=== PATIENT | male | born 1985 | race Caucasian/White ===

== ENCOUNTER → 2020-03-08 16:20 | Outpatient (CLI) | payer BC, SELFPAY ==
--- NOTE | 2020-03-08 16:21 | DI.RAD.S_ITS ---
PROCEDURE: XR SOFT TISSUE NECK INDICATIONS: Possible FB in throat TECHNIQUE: 2 views of the neck were acquired. COMPARISON: None. FINDINGS: Airway: The airway appears patent. Soft tissues: Prevertebral soft tissues are normal in thickness. The epiglottis and aryepiglottic folds appear normal. No soft tissue gas. No radiopaque foreign bodies are seen. Bones: No suspicious bony lesions. Visualized cervical spine is normally aligned. Mild lower cervical spine degenerative changes are seen. IMPRESSION: No radiopaque foreign bodies are seen. Dictated by: Jerome Otto M.D. on 03/08/2020 at 15:52 Approved by: Jerome Otto M.D. on 03/08/2020 at 15:52
== END ==
PROVIDERS: Referring Provider Nurse Practitioner; Visit Provider Nurse Practitioner
DX: T17.208A Unspecified foreign body in pharynx causing other injury, initial encounter
CPT/HCPCS: 70360

== ENCOUNTER 2020-03-10 09:55 | Day surgery (SDC) | payer BC, SELFPAY ==
[2020-03-10 11:18] VITALS: BP 120/71; PULSE 104; RESP 20; TEMP 36.4; O2SAT 98; BMI 50.3
[2020-03-10 11:33] LABS: COVID19 -Nasal RAPID Negative (Negative)
--- NOTE | 2020-03-10 12:13 | PM.PREOP ---
Pre-operative Note COVID-19 COVID-19 status: Negative Result date/Date tested (Pos, Neg/Pending): 03/10/20 Interval Note History & Physical reviewed/Exam performed by Physician: Yes Changes to H&P: No H&P completed within 30 days and has changed as indicated here:: Because of this patient's severe morbid obesity, he is at a high risk of cardiac and respiratory complications during this procedure, specifically related to the sedation. The risks and benefits of EGD were discussed with the patient. I have consulted Dr. Lucas from anesthesia to perform sedation for this high risk procedure. ASA Class (for procedural sedation): III
--- NOTE | 2020-03-10 12:33 | PM.OP.ENDO ---
Operative Date/Time/Diagnoses Date of procedure: 03/10/20 Time of procedure: 12:33 Pre-op diagnosis: Foreign body sensation of the upper esophagus/pharynx Post-op diagnosis: other (No foreign body found) Procedure & Clinicians Study performed: Diagnostic esophagoscopy Same procedure as scheduled: Yes Indications: Patient had an ongoing foreign body sensation in his upper esophagus/pharynx after eating chips a few days ago. He was seen by Dr. Huff yesterday in clinic, and scheduled for an EGD with me today to rule out retained foreign body in the upper esophagus. I consulted Dr. Lucas to the provide sedation for this patient because of his high risk of cardiac or respiratory arrest under sedation given his severe morbid obesity. Surgeon: Joseline Montejo Procedure Notes SCOAP/Timeout: Performed Procedure in detail: The patient was brought to the room and placed in left lateral decubitus position with all bony prominences padded. A bite block was positioned in the patient's mouth to protect the lips, teeth, and tongue for the procedure. A time-out was performed and then the patient was given procedural sedation by Dr. Lucas. Vitals were monitored throughout the procedure. Once adequately sedated, the procedure was begun. The lubricated gastroscope was passed through the bite block and across the tongue and into the esophagus with some difficulty. There was significant redundant tissue in the patient's mouth and posterior oropharynx which made it difficult to introduce the scope into the esophagus. Once the esophagus was intubated with the scope, a tubular view of the esophagus was maintained as the scope was advanced through the esophagus and into the distal esophagus. The scope was then withdrawn and a careful examination of the esophagus was performed from the lower esophageal sphincter to the upper esophageal sphincter. No foreign bodies were found, and no excoriations or injuries of the esophagus were seen. I then dorothy the scope out into the posterior oropharynx and examined the posterior oropharynx, piriform sinuses, and valleculae bilaterally. No foreign bodies were seen, and no excoriations or injuries were seen. During the procedure the patient desatted to the 30s several times, and I had to remove the scope for Dr. Lucas to bag the patient and bring him back up. The desats were about 30 seconds to 1 minute each time. He was satting well at the and of the procedure. The scope was then withdrawn from the patient the procedure was concluded. Findings: other findings (Normal esophageal mucosa and posterior oropharynx) Specimen(s): none sent Complications: none Impression: Normal esophageal mucosa and posterior oropharynx. The patient's foreign body sensation is likely secondary to an injury from the chips that he was eating, which is in the process of healing. Post-procedure Follow up: as needed Disposition: PACU
[2020-03-10] MEDS: LIDOCAINE 4% SOLN 50 ML 20 ML TOP (12:42)
[2020-03-10 12:44] VITALS: BP 113/66; PULSE 108; RESP 10; TEMP 36.4; O2SAT 97
[2020-03-10 12:48] VITALS: BP 119/57; PULSE 113; RESP 13; TEMP 36.3; O2SAT 94
--- NOTE | 2020-03-10 12:52 | SUR.OPER ---
Dr Lucas conducting anesthesia at bedside. All respiratory interventions performed by anesthesia. Pt A&Ox3 post procedure, vitals stable.
[2020-03-10 12:53] VITALS: BP 112/39; PULSE 117; RESP 14; TEMP 36.6; O2SAT 96
[2020-03-10 12:59] VITALS: BP 118/44; PULSE 111; RESP 13; TEMP 36.6; O2SAT 95
[2020-03-10 13:10] VITALS: BP 117/65; PULSE 103; RESP 12; TEMP 36.8; O2SAT 97
== END 2020-03-10 13:30 | disposition home or self-care (01) ==
PROVIDERS: Specialist; Referring Provider Surgery; Visit Provider Surgery
PROC: 0DJ08ZZ Inspection of Upper Intestinal Tract, Via Natural or Artificial Opening Endoscopic (ICD-10-PCS; CPT 43235; principal; 2020-03-10 12:15)
DX: R13.14 Dysphagia, pharyngoesophageal phase (principal); E66.01 Morbid (severe) obesity due to excess calories; I10 Essential (primary) hypertension; Z11.59 Encounter for screening for other viral diseases
CPT/HCPCS: 43235; 87635; J2704; J3010

== ENCOUNTER 2022-12-07 23:19 | Emergency (ER) | payer SELFPAY ==
[2022-12-07 23:23] VITALS: BP 145/91; PULSE 103; RESP 18; TEMP 36.6; O2SAT 96; BMI 52.3
--- NOTE | 2022-12-07 23:28 | DI.RAD.S_ITS ---
PROCEDURE: XR CHEST 1V INDICATIONS: chest pain TECHNIQUE: One view of the chest was acquired. COMPARISON: None. FINDINGS: Surgical changes and devices: None. Lungs and pleura: Lungs are clear. No pleural effusions or pneumothorax. Mediastinum: Mediastinal contours appear normal. Heart size is normal. Bones and chest wall: No suspicious bony lesions. Overlying soft tissues appear unremarkable. IMPRESSION: Normal for age, source of current chest pain symptoms is not seen. Dictated by: Earle Aguilera M.D. on 12/07/2022 at 23:59 Approved by: Earle Aguilera M.D. on 12/07/2022 at 23:59
[2022-12-08 00:13] VITALS: PULSE 100; RESP 21; O2SAT 96
[2022-12-08 00:14] VITALS: BP 136/71; PULSE 98; RESP 21; O2SAT 96
[2022-12-08 00:23] LABS: Add Manual Diff / Slide Review NO; Basophils Absolute Auto 100 /uL (0-100); Basophils Percent Auto 0.6 % (0-2); Eosinophils Absolute Auto 300 /uL (0-450); Eosinophils Percent Auto 2.5 % (2-4); Hematocrit 42.9 % (41-53); Hemoglobin 14.5 g/dL (13.5-17.5); Lymphocytes Absolute Auto 3400 /uL (1100-4500); Lymphocytes Percent Auto 33.1 % (25-40); Mean Corpuscular HGB Conc 33.8 % (30-36); Mean Corpuscular Hemoglobin 27.6 PG (26-34); Mean Corpuscular Volume 81.6 fL (80-100); Monocytes Absolute Auto 800 /uL (0-900); Monocytes Percent Auto 7.9 % (3-14); Neutrophils Absolute Auto 5700 /uL (1500-7000); Neutrophils Percent Auto 55.9 % (50-75); Platelet Count 274 X10^3/uL (150-400); Red Blood Cell Count 5.26 X10^6/uL (4.5-5.9); Red Cell Distribution Width 14.4 % (11.6-14.8); White Blood Cell Count 10.2 X10^3/uL (4.5-11.0)
[2022-12-08 00:30] VITALS: PULSE 94; RESP 23; O2SAT 96
[2022-12-08 00:38] LABS: Alanine Aminotransferase 36 IU/L (<50); Albumin 4.2 g/dL (3.5-5.0); Albumin Globulin Ratio 1.2 (1.0-2.8); Alkaline Phosphatase 59 U/L (38-126); Aspartate Aminotransferase 30 IU/L (17-59); BUN Creatinine Ratio 29.9 (6-22); Bilirubin Total 0.3 mg/dL (0.2-1.3); Blood Urea Nitrogen 20 mg/dL (9-20); Calcium 8.9 mg/dL (8.4-10.2); Carbon Dioxide 26 mmol/L (22-32); Chloride 101 mmol/L (98-107); Creatine Kinase 112 U/L (55-170); Estimated Glomerular Filt Rate > 60 mL/min (>60); Globulin 3.4 g/dL (1.7-4.1); Glucose 134 mg/dL (70-100); HEMOLYSIS < 15 (0-50); Lipase 148 U/L (23-300); Magnesium 1.8 mg/dL (1.6-2.3); Sodium 136 mmol/L (137-145); Total Protein 7.6 g/dL (6.3-8.2)
[2022-12-08 00:50] LABS: Troponin I < 0.012 ng/mL (0.01-0.034)
[2022-12-08 00:53] LABS: CKMB % Relative Index 0.8 % (1.5-5.0); Creatine Kinase MB 0.91 ng/mL (<2.37)
[2022-12-08 01:00] VITALS: PULSE 96; RESP 22; O2SAT 94
[2022-12-08 01:04] LABS: Prothrombin Time 11.1 SECONDS (10.1-12.7)
[2022-12-08 01:07] LABS: PTT Partial Thromboplastin Tim 36 SECONDS (26-36)
[2022-12-08 01:30] VITALS: BP 166/74; PULSE 93; RESP 20; O2SAT 94
--- NOTE | 2022-12-08 02:13 | ED.CHESTPAIN ---
HPI - Chest Pain General Chief Complaint: Chest Pain Stated Complaint: chest pain Time Seen by Provider: 12/08/22 01:32 Source: patient Mode of arrival: Ambulatory Limitations: no limitations History of Present Illness HPI narrative: Patient is a 37-year-old male history of hypertension obesity presenting today with right-sided chest pain. He reports that he did lift up something sort of heavy he gave it a great big bear hug and lifted it he did not recall any specific injury afterwards. However while in the shower noticed some discomfort. He noticed again running down tying his shoes and again playing with his kids. Seems to be positional denies any palpitations or shortness of breath. No family history of coronary artery disease. Denies any diaphoresis nausea vomiting. Related Data Home Medications Medication Instructions Recorded Confirmed lisdexamfetamine 70 mg capsule See Rx Instructions .Route .COMPLEX 03/10/20 03/10/20 (Vyvanse) lisinopril 20 See Rx Instructions .Route .COMPLEX 03/10/20 03/10/20 mg-hydrochlorothiazide 25 mg tablet (Zestoretic) testosterone 1.62 % (40.5 mg/2.5 See Rx Instructions .Route .COMPLEX 03/10/20 03/10/20 gram) transdermal gel packet (AndroGel) Allergies Allergy/AdvReac Type Severity Reaction Status Date / Time prednisone [PREDNISONE] Allergy Intermediate nephritis Verified 03/10/20 17:41 Review of Systems Review of Systems ROS Unobtainable: All systems reviewed & are unremarkable except as noted in HPI and below Patient History Medical History Hypertension Low testosterone Surgical History History of repair of ACL Family History Mother Diabetes mellitus Social History household members: spouse Smoking Status: Never smoker Smoking Status: Never smoker alcohol intake frequency: holidays/special occasions only Substance Use Type: does not use Exam Initial Vital Signs Initial Vital Signs: Vital Signs Temperature 98 F 12/07/22 23:23 Pulse Rate 103 H 12/07/22 23:23 Respiratory Rate 18 12/07/22 23:23 Blood Pressure 145/91 H 12/07/22 23:23 Pulse Oximetry 96 12/07/22 23:23 Oxygen Delivery Method Room Air 12/07/22 23:23 GENERAL: Alert pleasant well-appearing old male BMI 52 and in no acute distress. HEENT: Head atraumatic,EOMI, pupils reactive, face symmetric, moist mucous membranes CARDIOVASCULAR: Regular rate and rhythm without murmurs, rubs or gallops. Right-sided pain between ribs 3 and 4 reproducible with palpation RESPIRATORY: Breath sounds equal bilaterally, no wheezes rales or rhonchi. ABDOMEN: Soft, nontender. Normoactive bowel sounds all 4 quadrants. No guarding or rebound. EXTREMITIES: Normal range of motion, no clubbing or edema. Neurovascularly intact NEUROLOGICAL: Alert and oriented x4. SKIN: Warm, dry, no laceration, no petechiae, no rashes or lesions. Scores HEART Score Heart Score history: Slightly Suspicious Heart Score EKG: Normal Heart Score Age: < 45 years old Heart Score risk factors: 1-2 risk factors Heart Score troponin: < or = to normal limit Heart Score Total: 1 Course Orders Ordered: ED Orders 12/07/22 23:28 XR chest 1V Stat Complete Blood Count AUTO DIFF Stat Comprehensive Metabolic Panel Stat Lipase Stat Magnesium Stat PTT Partial Thromboplastin Alexsander Stat Prothrombin Time INR Stat Troponin & CK Cardiac Panel Stat EKG-12 Lead Stat 12/08/22 02:16 Troponin I Stat Discontinued Medications Aspirin (Aspirin 81 Mg Chew Tab) 324 mg PO NOW ONE Stop: 12/07/22 23:29 Last Admin: 12/08/22 02:18 Dose: Not Given Documented By: BS Vital Signs Vital signs: Vital Signs - 8 hr 12/07/22 23:23 12/08/22 00:13 12/08/22 00:14 Temperature 98 F Pulse Rate 103 H 100 H Respiratory Rate 18 21 Blood Pressure 145/91 H 136/71 Pulse Oximetry 96 96 Oxygen Delivery Method Room Air 12/08/22 00:14 12/08/22 00:30 12/08/22 01:00 Temperature Pulse Rate 98 H 94 H 96 H Respiratory Rate 21 23 22 Blood Pressure Pulse Oximetry 96 96 94 Oxygen Delivery Method 12/08/22 01:30 Temperature Pulse Rate 93 H Respiratory Rate 20 Blood Pressure 166/74 H Pulse Oximetry 94 Oxygen Delivery Method MDM - Chest Pain Lab Data 12/08/22 00:15 12/08/22 00:15 Labs: Lab Results 12/08/22 12/08/22 12/08/22 Range/Units 00:15 00:15 00:15 WBC 10.2 (4.5-11.0) X10^3/uL RBC 5.26 (4.5-5.9) X10^6/uL Hgb 14.5 (13.5-17.5) g/dL Hct 42.9 (41-53) % MCV 81.6 (80-100) fL MCH 27.6 (26-34) PG MCHC 33.8 (30-36) % RDW 14.4 (11.6-14.8) % Plt Count 274 (150-400) X10^3/uL Neut % (Auto) 55.9 (50-75) % Lymph % (Auto) 33.1 (25-40) % Treasure % (Auto) 7.9 (3-14) % Eos % (Auto) 2.5 (2-4) % Baso % (Auto) 0.6 (0-2) % Neut # (Auto) 5700 (7582-8399) /uL Lymph # (Auto) 3400 (1158-7386) /uL Treasure # (Auto) 800 (0-900) /uL Eos # (Auto) 300 (0-450) /uL Baso # (Auto) 100 (0-100) /uL PT 11.1 (10.1-12.7) SECONDS INR 1.0 (0.9-1.3) APTT 36 (26-36) SECONDS Sodium 136 L (137-145) mmol/L Potassium 4.0 (3.4-5.1) mmol/L Chloride 101 (98-107) mmol/L Carbon Dioxide 26 (22-32) mmol/L BUN 20 (9-20) mg/dL Creatinine 0.67 (0.66-1.25) mg/dL Estimated GFR > 60 (>60) mL/min BUN/Creatinine Ratio 29.9 H (6-22) Glucose 134 H (70-100) mg/dL Calcium 8.9 (8.4-10.2) mg/dL Magnesium 1.8 (1.6-2.3) mg/dL Total Bilirubin 0.3 (0.2-1.3) mg/dL AST 30 (17-59) IU/L ALT 36 (<50) IU/L Alkaline Phosphatase 59 (38-126) U/L Total Creatine Kinase 112 (55-170) U/L CK-MB (CK-2) 0.91 (<2.37) ng/mL CK-MB (CK-2) Rel Index 0.8 L (1.5-5.0) % Troponin I < 0.012 (0.01-0.034) ng/mL Total Protein 7.6 (6.3-8.2) g/dL Albumin 4.2 (3.5-5.0) g/dL Globulin 3.4 (1.7-4.1) g/dL Albumin/Globulin Ratio 1.2 (1.0-2.8) Lipase 148 (23-300) U/L 12/08/22 Range/Units 02:16 WBC (4.5-11.0) X10^3/uL RBC (4.5-5.9) X10^6/uL Hgb (13.5-17.5) g/dL Hct (41-53) % MCV (80-100) fL MCH (26-34) PG MCHC (30-36) % RDW (11.6-14.8) % Plt Count (150-400) X10^3/uL Neut % (Auto) (50-75) % Lymph % (Auto) (25-40) % Treasure % (Auto) (3-14) % Eos % (Auto) (2-4) % Baso % (Auto) (0-2) % Neut # (Auto) (2898-3207) /uL Lymph # (Auto) (4918-2404) /uL Treasure # (Auto) (0-900) /uL Eos # (Auto) (0-450) /uL Baso # (Auto) (0-100) /uL PT (10.1-12.7) SECONDS INR (0.9-1.3) APTT (26-36) SECONDS Sodium (137-145) mmol/L Potassium (3.4-5.1) mmol/L Chloride (98-107) mmol/L Carbon Dioxide (22-32) mmol/L BUN (9-20) mg/dL Creatinine (0.66-1.25) mg/dL Estimated GFR (>60) mL/min BUN/Creatinine Ratio (6-22) Glucose (70-100) mg/dL Calcium (8.4-10.2) mg/dL Magnesium (1.6-2.3) mg/dL Total Bilirubin (0.2-1.3) mg/dL AST (17-59) IU/L ALT (<50) IU/L Alkaline Phosphatase (38-126) U/L Total Creatine Kinase (55-170) U/L CK-MB (CK-2) (<2.37) ng/mL CK-MB (CK-2) Rel Index (1.5-5.0) % Troponin I < 0.012 (0.01-0.034) ng/mL Total Protein (6.3-8.2) g/dL Albumin (3.5-5.0) g/dL Globulin (1.7-4.1) g/dL Albumin/Globulin Ratio (1.0-2.8) Lipase (23-300) U/L Imaging Data Chest x-ray: Radiologist's Impression: PROCEDURE:? XR CHEST 1V ? INDICATIONS:? chest pain ? TECHNIQUE:? One view of the chest was acquired.? ? COMPARISON:? None. ? FINDINGS:? ? Surgical changes and devices:? None.? ? Lungs and pleura:? Lungs are clear.? No pleural effusions or pneumothorax.? ? Mediastinum:? Mediastinal contours appear normal.? Heart size is normal.? ? Bones and chest wall:? No suspicious bony lesions.? Overlying soft tissues appear unremarkable.? ? IMPRESSION:? Normal for age, source of current chest pain symptoms is not seen. ? ? Dictated by: Earle Aguilera M.D. on 12/07/2022 at 23:59 ? ? ECG Data Interpretation: Sinus rhythm rate 107 VT interval 148 QRS [address] changes no T-wave inversions MDM Narrative Medical decision making narrative: Patient is a 37-year-old male who presents with right-sided chest pain and 1 area. He did grab something heavy in try to lift it. Pain is definitely positional not necessarily reproducible. He does have comorbidities of obesity and hypertension. He is 2- troponins and normal EKG normal electrolytes no ANNA or leukocytosis. Symptoms are most consistent with a costochondritis rather than acute coronary syndrome. Chest x-ray is negative for any pneumonia or pneumothorax. We discussed warning signs, he may require cardiac evaluation at some point symptoms change. Discharge Plan Departure Patient Disposition: Home Clinical Impression: Costochondritis, Atypical chest pain Instructions: Costochondritis, DI for Atypical Chest Pain Activity Restrictions/Additional Instructions: *You have been diagnosed with costochondritis atypical chest pain *What to do: At this time I suspect that your pain is from moving something heavy. Supportive care rest ice or heat as needed *Continue to take medications as directed Ibuprofen 600 mg every 6 hours if needed for [id number] pain *Follow up with your primary care provider in 2-3 days or call [phone] *Return to ER if you should have increasing chest pain shortness of breath heaviness or any new, worsening or concerning symptoms Prescriptions: No Action testosterone [AndroGel] 1.62 % (40.5 mg/2.5 gram) gel in packet See Rx Instructions .ROUTE .COMPLEX Rx Instructions: RX lisinopril-hydrochlorothiazide [Zestoretic] 20-25 mg tablet See Rx Instructions .ROUTE .COMPLEX Rx Instructions: RX Vyvanse 70 mg capsule See Rx Instructions .ROUTE .COMPLEX Rx Instructions: RX Stand Alone Forms: Patient Portal/API
[2022-12-08 02:45] LABS: Troponin I < 0.012 ng/mL (0.01-0.034)
== END 2022-12-08 03:00 | disposition home or self-care (01) ==
PROVIDERS: Emergency Provider Emergency Medicine
DX: R07.89 Other chest pain (principal); M94.0 Chondrocostal junction syndrome [Tietze]
CPT/HCPCS: 36415; 71045; 80053; 82550; 82553; 83690; 83735; 84484; 85025; 85610; 85730; 93005; 99283